=== PATIENT | male | born 1955 | race Caucasian/White ===

== ENCOUNTER → 2018-06-22 | Outpatient (REF) | payer BC ==
[2018-06-22 13:30] LABS: HEMATOCRIT 47.5 % (42.0-52.0); HEMOGLOBIN 15.5 g/dl (13.5-17.5); MEAN CORPUSCULAR HEMOGLOBIN 29.6 pg (27.0-33.0); MEAN CORPUSCULAR HGB CONC 32.6 g/dl (32.0-36.5); MEAN CORPUSCULAR VOLUME 90.8 fl (80.0-96.0); PLATELET COUNT, AUTOMATED 266 10^3/uL (150-450); RED BLOOD COUNT 5.23 10^6/uL (4.30-6.10); WHITE BLOOD COUNT 5.7 10^3/uL (4.0-10.0)
[2018-06-22 13:53] LABS: ALT/SGPT 40 U/L (12-78); BILIRUBIN,TOTAL 0.7 MG/DL (0.2-1.0); BLOOD UREA NITROGEN 17 MG/DL (7-18); CALCIUM LEVEL 8.8 MG/DL (8.8-10.2); CARBON DIOXIDE LEVEL 29 MEQ/L (21-32); CHLORIDE LEVEL 104 MEQ/L (98-107); CREATININE FOR GFR 1.14 MG/DL (0.70-1.30); GLOMERULAR FILTRATION RATE > 60.0 (>49); GLUCOSE, FASTING 112 MG/DL (70-100); POTASSIUM SERUM 4.8 MEQ/L (3.5-5.1); SODIUM LEVEL 140 MEQ/L (136-145); TRIGLYCERIDES LEVEL 125 MG/DL (<150)
[2018-06-22 13:54] LABS: ALBUMIN 4.1 GM/DL (3.2-5.2); CHOLESTEROL LEVEL 195 MG/DL (<200); CHOLESTEROL RISK RATIO 4.333 (<5); FOLATE 14.7 NG/ML; FREE T4 1.16 NG/DL (0.76-1.46); HDL CHOLESTEROL 45 MG/DL (>40); LDL CHOLESTEROL 125 MG/DL (<100); NON-HDL-C 150 MG/DL; RHEUMATOID FACTOR QUANT < 10.0 IU/ML (<15.0); TOTAL 25(OH) VITAMIN D 14.6 NG/ML (30.0-100.0); TOTAL PROTEIN 7.1 GM/DL (6.4-8.2); VITAMIN B12 LEVEL 458 PG/ML
[2018-06-22 14:07] LABS: MALB URINE SIEMENS 11.6 MG/L; MAU/CREAT RATIO 4.3 MCG/MG (0.0-30.0)
[2018-06-24 00:07] LABS: ANA (HEP2) Negative (.)
== END ==
LOC: M SFHCADAM 09:17
PROVIDERS: ATTEND Family Medicine
DX: I11.9 Hypertensive heart disease without heart failure (principal); E78.5 Hyperlipidemia, unspecified; I73.00 Raynaud's syndrome without gangrene

== ENCOUNTER 2018-09-26 08:29 | Day surgery (SDC) | payer BC ==
[~2018-09-26] VITALS: Ht 172.7 cm; Wt 91.4 kg
[~2018-09-26 08:29] MED LIST: AZEL0.055; LANS30CA93; LIDOCAINE 2% INJ 100 MG/5 ML SDV (FOR ANES.) As Ordered ONE; LISI10TA4; PROPOFOL 200 MG/20 ML VIAL As Ordered ONE; [UNRECOGNIZED DRUG - CODE]
[2018-09-26] MEDS ORDERED: NS 1,000 ML IV ONE (09:15)
[2018-09-26] MEDS ORDERED: PROPOFOL 200 MG/20 ML VIAL As Ordered ONE (10:33)
--- NOTE | 2018-09-26 10:50 | ROOR ---
Patient Name: Narciso Abbott Procedure Date: 09/26/2018 10:10 AM Date of : 1955 Age: 63 Room: [facility] Gender: Male Note Status: Finalized Procedure: Colonoscopy Indications: Screening for colorectal malignant neoplasm Providers: Rodrigo Galvez MD Referring MD: Prabhu Gtz MD Requesting Provider: Medicines: Monitored Anesthesia Care Complications: No immediate complications. Procedure: Pre-Anesthesia Assessment: - Prior to the procedure, a History and Physical was performed, and patient medications and allergies were reviewed. The patient is competent. The risks and benefits of the procedure and the sedation options and risks were discussed with the patient. All questions were answered and informed consent was obtained. Patient identification and proposed procedure were verified by the physician, the nurse and the anesthesiologist in the procedure room. Mental Status Examination: alert and oriented. Airway Examination: normal oropharyngeal airway and neck mobility. Respiratory Examination: clear to auscultation. CV Examination: normal. Prophylactic Antibiotics: The patient does not require prophylactic antibiotics. Prior Anticoagulants: The patient has taken no previous anticoagulant or antiplatelet agents. ASA Grade Assessment: II - A patient with mild systemic disease. After reviewing the risks and benefits, the patient was deemed in satisfactory condition to undergo the procedure. The anesthesia plan was to use monitored anesthesia care (MAC). Immediately prior to administration of medications, the patient was re-assessed for adequacy to receive sedatives. The heart rate, respiratory rate, oxygen saturations, blood pressure, adequacy of pulmonary ventilation, and response to care were monitored throughout the procedure. The physical status of the patient was re-assessed after the procedure. The Colonoscope was introduced through the anus and advanced to the cecum, identified by appendiceal orifice and ileocecal valve. The colonoscopy was performed without difficulty. The patient tolerated the procedure well. The quality of the bowel preparation was good. The ileocecal valve, appendiceal orifice, and rectum were photographed. Scope insertion time was 2 minutes. Scope withdrawal time was 10 minutes. The total duration of the procedure was 12 minutes. Findings: The perianal and digital rectal examinations were normal. Two sessile polyps were found in the cecum. The polyps were 4 to 8 mm in size. These polyps were removed with a cold snare. Resection and retrieval were complete. Verification of patient identification for the specimen was done by the physician and nurse using the patient's name, date and medical record number. Estimated blood loss was minimal. A 3 mm polyp was found in the ascending colon. The polyp was sessile. The polyp was removed with a cold snare. Resection and retrieval were complete. A 12 mm polyp was found in the descending colon. The polyp was sessile. The polyp was removed with a cold snare. Resection and retrieval were complete. For hemostasis, one hemostatic clip was successfully placed. There was no bleeding at the end of the procedure. Multiple small and large-mouthed diverticula were found from sigmoid to descending colon. There was no evidence of diverticular bleeding. Non-bleeding external and internal hemorrhoids were found during retroflexion. The hemorrhoids were medium-sized. Impression: - Two 4 to 8 mm polyps in the cecum, removed with a cold snare. Resected and retrieved. - One 3 mm polyp in the ascending colon, removed with a cold snare. Resected and retrieved. - One 12 mm polyp in the descending colon, removed with a cold snare. Resected and retrieved. Clip was placed. - Moderate diverticulosis from sigmoid to descending colon. There was no evidence of diverticular bleeding. - Non-bleeding external and internal hemorrhoids. Recommendation: - Patient has a contact number available for emergencies. The signs and symptoms of potential delayed complications were discussed with the patient. Return to normal activities tomorrow. Written discharge instructions were provided to the patient. - High fiber diet. - Continue present medications. - Await pathology results. - Repeat colonoscopy in 3 - 5 years for surveillance based on pathology results. - Based on the biopsy results you will receive a phone call from GI clinic in 2-3 weeks to review the pathology results AND/OR your results will be faxed to your Primary care physician. - Return to primary care physician. Rodrigo Galvez MD Rodrigo Galvez MD 09/26/2018 10:49:31 AM Electronically signed by Rodrigo Galvez MD Number of Addenda: 0 Note Initiated On: 09/26/2018 10:10 AM Estimated Blood Loss: Estimated blood loss was minimal.
[2018-09-26 10:55] VITALS: BP 117/72
== END 2018-09-26 11:07 | disposition home or self-care (01) ==
LOC: M OPP 08:29
PROVIDERS: ATTEND Internal Medicine Gastroenterology
DX: Z12.11 Encounter for screening for malignant neoplasm of colon (principal); D12.0 Benign neoplasm of cecum; D12.2 Benign neoplasm of ascending colon; D12.4 Benign neoplasm of descending colon; K64.8 Other hemorrhoids; K57.30 Diverticulosis of large intestine without perforation or abscess without bleeding; Z79.899 Other long term (current) drug therapy; Z87.891 Personal history of nicotine dependence

== ENCOUNTER → 2019-02-15 | Outpatient (REF) | payer BC ==
[~2019-02-15] MED LIST changes: -LIDOCAINE 2% INJ 100 MG/5 ML SDV (FOR ANES.) As Ordered ONE; -PROPOFOL 200 MG/20 ML VIAL As Ordered ONE
[2019-02-15 12:42] LABS: HEMATOCRIT 45.9 % (42.0-52.0); HEMOGLOBIN 14.7 g/dl (13.5-17.5); MEAN CORPUSCULAR HEMOGLOBIN 30.1 pg (27.0-33.0); MEAN CORPUSCULAR VOLUME 94.1 fl (80.0-96.0); PLATELET COUNT, AUTOMATED 234 10^3/uL (150-450); RED BLOOD COUNT 4.88 10^6/uL (4.30-6.10); WHITE BLOOD COUNT 5.2 10^3/uL (4.0-10.0)
[2019-02-15 12:55] LABS: ALBUMIN 3.8 GM/DL (3.2-5.2); ALT/SGPT 43 U/L (12-78); BILIRUBIN,TOTAL 0.6 MG/DL (0.2-1.0); BLOOD UREA NITROGEN 15 MG/DL (7-18); CARBON DIOXIDE LEVEL 31 MEQ/L (21-32); CHLORIDE LEVEL 104 MEQ/L (98-107); CREATININE FOR GFR 1.06 MG/DL (0.70-1.30); GLOMERULAR FILTRATION RATE > 60.0 (>49); GLUCOSE, FASTING 105 MG/DL (70-100); POTASSIUM SERUM 4.6 MEQ/L (3.5-5.1); SODIUM LEVEL 140 MEQ/L (136-145); TOTAL PROTEIN 6.7 GM/DL (6.4-8.2)
== END ==
LOC: M SFHCADAM 08:56
PROVIDERS: ATTEND Physician Assistant
DX: I11.9 Hypertensive heart disease without heart failure (principal)

== ENCOUNTER → 2019-06-27 | Outpatient (REF) | payer BC | LOC: M SFHCADAM 08:28 | PROVIDERS: ATTEND Family Medicine | DX: I11.9 Hypertensive heart disease without heart failure (principal); E78.5 Hyperlipidemia, unspecified; Z12.5 Encounter for screening for malignant neoplasm of prostate; E55.9 Vitamin D deficiency, unspecified ==

== ENCOUNTER → 2019-12-28 | Outpatient (REF) | payer BC, OTHER, SELFPAY ==
[2019-12-28 15:47] LABS: ALBUMIN 3.6 GM/DL (3.2-5.2); ALT/SGPT 31 U/L (12-78); BILIRUBIN,TOTAL 0.5 MG/DL (0.2-1.0); BLOOD UREA NITROGEN 15 MG/DL (7-18); CALCIUM LEVEL 9.3 MG/DL (8.8-10.2); CARBON DIOXIDE LEVEL 32 MEQ/L (21-32); CHLORIDE LEVEL 106 MEQ/L (98-107); CHOLESTEROL LEVEL 203 MG/DL (<200); CHOLESTEROL RISK RATIO 3.903 (<5); CREATININE FOR GFR 1.04 MG/DL (0.70-1.30); GLOMERULAR FILTRATION RATE > 60.0 (>49); GLUCOSE, FASTING 96 MG/DL (70-100); HDL CHOLESTEROL 52 MG/DL (>40); LDL CHOLESTEROL 131 MG/DL (<100); NON-HDL-C 151 MG/DL; POTASSIUM SERUM 5.1 MEQ/L (3.5-5.1); PROSTATIC SPECIFIC AG MONITOR 0.95 NG/ML (< 4.00); SODIUM LEVEL 140 MEQ/L (136-145); TOTAL PROTEIN 6.7 GM/DL (6.4-8.2); TRIGLYCERIDES LEVEL 99 MG/DL (<150)
[2019-12-28 15:52] LABS: TOTAL 25(OH) VITAMIN D 31.4 NG/ML (30.0-100.0)
== END ==
LOC: M LABDRWAD 10:15
PROVIDERS: ATTEND Family Medicine
DX: E55.9 Vitamin D deficiency, unspecified (principal); E78.1 Pure hyperglyceridemia; I11.9 Hypertensive heart disease without heart failure; Z12.5 Encounter for screening for malignant neoplasm of prostate

== ENCOUNTER → 2020-03-26 | Outpatient (CLI) | payer SELFPAY | LOC: M LABSMTC 11:00 | PROVIDERS: ATTEND Pediatrics | DX: Z11.59 Encounter for screening for other viral diseases (principal) ==

== ENCOUNTER → 2020-09-28 | Outpatient (REF) | payer OTHER ==
[~2020-09-28] MED LIST changes: +LISI10TA22; -LISI10TA4
[2020-09-28 18:53] LABS: APPEARANCE, URINE CLEAR (CLEAR); BACTERIA, URINE AUTO NEGATIVE (NEGATIVE); BILIRUBIN, URINE AUTO NEGATIVE (NEGATIVE); BLOOD, URINE BLOOD NEGATIVE (NEGATIVE); COLOR, URINE YELLOW (YELLOW); GLUCOSE, URINE (UA) AUTO NEGATIVE (NEGATIVE); KETONE, URINE AUTO NEGATIVE (NEGATIVE); LEUKOCYTE ESTERASE, URINE AUTO NEGATIVE (NEGATIVE); NITRITE, URINE AUTO NEGATIVE (NEGATIVE); PROTEIN, URINE AUTO NEGATIVE (NEGATIVE); RBC, URINE AUTO 0 /HPF (0-3); SPECIFIC GRAVITY URINE AUTO 1.006 (1.002-1.035); SQUAMOUS EPITHELIAL CELL UR AU 0 /HPF (0-6); UROBILINOGEN, URINE AUTO 0.2 mg/dL (0.0-2.0); WBC, URINE AUTO 0 /HPF (0-3)
== END ==
LOC: M LAB REF 18:36
PROVIDERS: ATTEND Physician Assistant
DX: N39.0 Urinary tract infection, site not specified (principal)

== ENCOUNTER → 2021-04-22 | Outpatient (CLI) | payer OTHER ==
--- NOTE | 2021-04-22 09:25 | REP ---
INDICATION: PUNCTURE WOUND OF RIGHT THUMB COMPARISON: None. TECHNIQUE: AP, lateral, bilateral oblique views right 1st digit. FINDINGS: The subcutaneous tissues are normal and without emphysema or foreign body. There is a subtle linear lucency noted within the distal phalanx/terminal tuft which is nonspecific. This should be correlated with mechanism of injury. No further acute osseous abnormality identified. IMPRESSION: No obvious soft tissue injury.. As above. <Electronically signed by Ronald Duran > 04/22/21 0910
== END ==
LOC: M ADAMS 09:01
PROVIDERS: ATTEND Family Medicine
DX: S61.031A Puncture wound without foreign body of right thumb without damage to nail, initial encounter (principal); W18.30XA Fall on same level, unspecified, initial encounter; Y92.009 Unspecified place in unspecified non-institutional (private) residence as the place of occurrence of the external cause

== ENCOUNTER → 2021-10-03 | Outpatient (REF) | payer OTHER | LOC: M SFHCADAM 14:55 | PROVIDERS: ATTEND Family Medicine | DX: K42.9 Umbilical hernia without obstruction or gangrene (principal); I11.9 Hypertensive heart disease without heart failure; E78.5 Hyperlipidemia, unspecified; Z12.5 Encounter for screening for malignant neoplasm of prostate ==

== ENCOUNTER → 2021-11-14 | Outpatient (CLI) | payer OTHER ==
[2021-11-14 10:53] LABS: HEMATOCRIT 55.3 % (42.0-52.0); HEMOGLOBIN 17.4 g/dl (13.5-17.5); MEAN CORPUSCULAR HEMOGLOBIN 28.6 pg (27.0-33.0); MEAN CORPUSCULAR HGB CONC 31.5 g/dl (32.0-36.5); PLATELET COUNT, AUTOMATED 230 10^3/uL (150-450); RED BLOOD COUNT 6.08 10^6/uL (4.30-6.10); WHITE BLOOD COUNT 7.2 10^3/uL (4.0-10.0)
[2021-11-14 11:16] LABS: ALBUMIN 3.9 GM/DL (3.2-5.2); ALT/SGPT 32 U/L (12-78); BILIRUBIN,TOTAL 0.6 MG/DL (0.2-1.0); BLOOD UREA NITROGEN 17 MG/DL (7-18); CALCIUM LEVEL 9.7 MG/DL (8.8-10.2); CARBON DIOXIDE LEVEL 27 MEQ/L (21-32); CHLORIDE LEVEL 107 MEQ/L (98-107); CHOLESTEROL LEVEL 211 MG/DL (<200); CHOLESTEROL RISK RATIO 4.306 (<5); CREATININE FOR GFR 1.13 MG/DL (0.70-1.30); GLOMERULAR FILTRATION RATE > 60.0 (>49); GLUCOSE, FASTING 103 MG/DL (70-100); HDL CHOLESTEROL 49 MG/DL (>40); LDL CHOLESTEROL 128 MG/DL (<100); NON-HDL-C 162 MG/DL; POTASSIUM SERUM 4.7 MEQ/L (3.5-5.1); SODIUM LEVEL 141 MEQ/L (136-145); TOTAL PROTEIN 7.2 GM/DL (6.4-8.2); TRIGLYCERIDES LEVEL 172 MG/DL (<150)
== END ==
LOC: M ADAMS 08:07
PROVIDERS: ATTEND Family Medicine
DX: Z12.5 Encounter for screening for malignant neoplasm of prostate (principal); I11.9 Hypertensive heart disease without heart failure; K42.9 Umbilical hernia without obstruction or gangrene; E78.5 Hyperlipidemia, unspecified
CPT/HCPCS: 36415; 80053; 80061; 85027; G0103

== ENCOUNTER → 2022-05-06 | Outpatient (CLI) | payer OTHER | LOC: M EKG 14:36 | PROVIDERS: ATTEND Anesthesiology | DX: I10 Essential (primary) hypertension (principal) ==

== ENCOUNTER → 2022-05-07 | Outpatient (CLI) | payer OTHER | LOC: M LABSMTC 09:45 | PROVIDERS: ATTEND Anesthesiology | DX: Z01.812 Encounter for preprocedural laboratory examination (principal); Z11.52 Encounter for screening for COVID-19 ==

== ENCOUNTER → 2022-07-30 | Outpatient (CLI) | payer OTHER | LOC: M ADAMS 10:12 | PROVIDERS: ATTEND Physician Assistant | DX: R05.3 Chronic cough (principal) ==

== ENCOUNTER → 2022-08-03 | Outpatient (REF) | payer OTHER ==
[2022-08-03 12:57] LABS: BASO # 0.1 10^3/uL (0.0-0.2); BASO % 1.1 % (0.0-1.0); EOS # 0.2 10^3/uL (0.0-0.5); EOS % 2.7 % (0.0-3.0); HEMATOCRIT 47.5 % (42.0-52.0); HEMOGLOBIN 14.9 g/dl (13.5-17.5); LYMPH # 2.2 10^3/uL (1.5-5.0); LYMPH % 31.1 % (24.0-44.0); MEAN CORPUSCULAR HEMOGLOBIN 29.9 pg (27.0-33.0); MEAN CORPUSCULAR HGB CONC 31.4 g/dl (32.0-36.5); MEAN CORPUSCULAR VOLUME 95.4 fl (80.0-96.0); MONO # 0.7 10^3/uL (0.0-0.8); MONO % 9.3 % (2.0-8.0); NEUTROPHILS # 3.9 10^3/uL (1.5-8.5); NEUTROPHILS % 55.4 % (36.0-66.0); PLATELET COUNT, AUTOMATED 272 10^3/uL (150-450); RED BLOOD COUNT 4.98 10^6/uL (4.30-6.10)
== END ==
LOC: M SFHCADAM 08:54
PROVIDERS: ATTEND Physician Assistant
DX: J32.9 Chronic sinusitis, unspecified (principal); R05.3 Chronic cough

== ENCOUNTER 2022-09-08 08:24 | Day surgery (SDC) | payer OTHER ==
[~2022-09-08] VITALS: Ht 172.7 cm; Wt 88.5 kg
[~2022-09-08 08:24] MED LIST changes: +AMLO1TAB24 PO; +ceFAZolin SOD 2 GM in IV 1 EA IV ONE
[2022-09-08] MEDS ORDERED: fentaNYL 250 MCG/5 ML INJECTION As Ordered ONE (08:53)
[2022-09-08] MEDS ORDERED: MIDAZOLAM INJ 2MG/2ML VIAL As Ordered ONE (08:53)
[2022-09-08] MEDS ORDERED: KETOROLAC 60MG 2ML VIAL As Ordered ONE (08:55)
[2022-09-08] MEDS ORDERED: ACETAMINOPHEN 1000MG 100ML IV BAG As Ordered ONE (08:56)
[2022-09-08] MEDS ORDERED: propofoL 200 MG/20 ML VIAL As Ordered ONE (08:56)
[2022-09-08] MEDS ORDERED: LIDOCAINE 2% 100MG/5ML SDV (FOR ANES.) As Ordered ONE (08:56)
[2022-09-08] MEDS ORDERED: ROCURONIUM BROMIDE 50MG/5ML VIAL As Ordered ONE ×2 (08:56→10:30)
[2022-09-08] MEDS ORDERED: ONDANSETRON 4MG 2ML VIAL As Ordered ONE (08:56)
[2022-09-08] MEDS ORDERED: LIDOCAINE 1% SDV 5ML VIAL SC PRN (09:10)
[2022-09-08] MEDS ORDERED: LR 1,000 ML IV SCH ×2 (09:10→11:30)
[2022-09-08] MEDS ORDERED: MIDAZOLAM 5MG/ML 1ML VIAL As Ordered ONE (09:43)
[2022-09-08] MEDS ORDERED: BUPIVACAINE/EPIN 0.25% 30ML VIAL As Ordered ONE (10:05)
[2022-09-08] MEDS ORDERED: ePHEDrine SULFATE 25 MG/5 ML(5MG/ML) SYRINGE As Ordered ONE (10:29)
[2022-09-08] MEDS ORDERED: PHENYLephrine 500MCG 5ML (100MCG/ML) SYRINGE As Ordered ONE (10:29)
[2022-09-08] MEDS ORDERED: SUGAMMADEX SODIUM 500 MG/5 ML VIAL (BRIDION) As Ordered ONE (10:31)
[2022-09-08] MEDS ORDERED: BUPIVACAINE HCL 0.25% 30ML VIAL As Ordered ONE (10:36)
[2022-09-08] MEDS ORDERED: BUPIVACAINE LIPOSOME/PF 1.3% 20ML VIAL (13.3MG/ML)(EXPAREL) As Ordered ONE (10:36)
[2022-09-08] MEDS ORDERED: ESMOLOL INJ 100MG/10ML VIAL As Ordered ONE (10:37)
[2022-09-08] MEDS ORDERED: fentaNYL 100 MCG/2 ML INJECTION IV PRN (11:30)
[2022-09-08] MEDS ORDERED: oxyCODONE 5MG TAB PO PRN (11:30)
[2022-09-08] MEDS ORDERED: ONDANSETRON 4MG 2ML VIAL IV PRN (11:30)
[2022-09-08] MEDS ORDERED: HYDROMORPHONE HCL 0.5 MG/ 0.5 ML SYRINGE IV PRN (11:30)
[2022-09-08 13:15] VITALS: BP 141/80
== END 2022-09-08 13:25 | disposition home or self-care (01) ==
LOC: M SDC 08:24
PROVIDERS: ATTEND Surgery
DX: K43.2 Incisional hernia without obstruction or gangrene (principal); I11.9 Hypertensive heart disease without heart failure; M10.00 Idiopathic gout, unspecified site; K21.9 Gastro-esophageal reflux disease without esophagitis; M25.461 Effusion, right knee; E78.5 Hyperlipidemia, unspecified; Z87.891 Personal history of nicotine dependence; Z79.899 Other long term (current) drug therapy; Z79.891 Long term (current) use of opiate analgesic; Z79.2 Long term (current) use of antibiotics; Z79.52 Long term (current) use of systemic steroids; Z88.8 Allergy status to other drugs, medicaments and biological substances
CPT/HCPCS: 49615; C1765; C1781; C9290; J0131; J0690; J1100; J1885; J2250; J2370; J2405; J3010; S0020; S2900

== ENCOUNTER → 2022-11-03 | Outpatient (CLI) | payer OTHER ==
[~2022-11-03] MED LIST changes: +E-Z-PAQUE 96% w/w SUSP 176GM BTL As Ordered ONE; -ceFAZolin SOD 2 GM in IV 1 EA IV ONE
== END ==
LOC: M RAD 09:42
PROVIDERS: ATTEND Family Medicine
DX: K44.9 Diaphragmatic hernia without obstruction or gangrene (principal)

== ENCOUNTER → 2023-03-03 | Outpatient (REF) | payer OTHER ==
[~2023-03-03] MED LIST changes: -E-Z-PAQUE 96% w/w SUSP 176GM BTL As Ordered ONE
[2023-03-03 15:05] LABS: HEMATOCRIT 46.2 % (42.0-52.0); HEMOGLOBIN 14.8 g/dl (13.5-17.5); MEAN CORPUSCULAR HEMOGLOBIN 30.2 pg (27.0-33.0); MEAN CORPUSCULAR VOLUME 94.3 fl (80.0-96.0); PLATELET COUNT, AUTOMATED 263 10^3/uL (150-450); WHITE BLOOD COUNT 5.9 10^3/uL (4.0-10.0)
[2023-03-03 15:14] LABS: ALBUMIN 3.7 G/DL (3.2-5.2); ALKALINE PHOSPHATASE 67 U/L (46-116); ALT/SGPT 34 U/L (7.0-40); AST/SGOT 19 U/L (<34); BILIRUBIN,TOTAL 0.5 MG/DL (0.3-1.2); BLOOD UREA NITROGEN 17 MG/DL (9-23); CALCIUM LEVEL 9.1 MG/DL (8.3-10.6); CARBON DIOXIDE LEVEL 28 MMOL/L (20-31); CHLORIDE LEVEL 105 MMOL/L (98-107); CHOLESTEROL LEVEL 180 MG/DL (<200); CHOLESTEROL RISK RATIO 3.33 (<5); CREATININE FOR GFR 0.94 MG/DL (0.70-1.30); GLOMERULAR FILTRATION RATE > 60.0 (>49); GLUCOSE, FASTING 115 MG/DL (74-106); HDL CHOLESTEROL 53.9 MG/DL (>40); LDL CHOLESTEROL 112.1 MG/DL (<100); NON-HDL-C 126.1 MG/DL; POTASSIUM SERUM 4.2 MMOL/L (3.5-5.1); SODIUM LEVEL 141 MMOL/L (136-145); TOTAL PROTEIN 6.6 G/DL (5.7-8.2); TRIGLYCERIDES LEVEL 70 MG/DL (<150)
== END ==
LOC: M SFHCADAM 09:09
PROVIDERS: ATTEND Family Medicine
DX: I11.9 Hypertensive heart disease without heart failure (principal); I73.00 Raynaud's syndrome without gangrene; E78.5 Hyperlipidemia, unspecified; Z12.5 Encounter for screening for malignant neoplasm of prostate

== ENCOUNTER → 2023-08-26 | Outpatient (CLI) | payer MEDICARE, OTHER ==
[~2023-08-26] MED LIST changes: +AMLO2.5T3 PO
== END ==
LOC: M RAD 12:07
PROVIDERS: ATTEND Physician Assistant
DX: R10.30 Lower abdominal pain, unspecified (principal)

== ENCOUNTER → 2024-03-07 | Outpatient (REF) | payer OTHER ==
[~2024-03-07] MED LIST changes: -AZEL0.055; +AZEL1SPR4
[2024-03-07 13:48] LABS: HEMATOCRIT 46.3 % (42.0-52.0); MEAN CORPUSCULAR HEMOGLOBIN 30.3 pg (27.0-33.0); MEAN CORPUSCULAR HGB CONC 32.4 g/dl (32.0-36.5); MEAN CORPUSCULAR VOLUME 93.5 fl (80.0-96.0); PLATELET COUNT, AUTOMATED 263 10^3/uL (150-450); RED BLOOD COUNT 4.95 10^6/uL (4.30-6.10); WHITE BLOOD COUNT 8.7 10^3/uL (4.0-10.0)
[2024-03-07 13:50] LABS: URIC ACID 4.6 MG/DL (3.7-9.2)
[2024-03-07 13:53] LABS: ALBUMIN 3.7 G/DL (3.2-5.2); ALKALINE PHOSPHATASE 69 U/L (40-129); ALT/SGPT 25 U/L (7.0-40); AST/SGOT 8 U/L (<34); BILIRUBIN,TOTAL 0.7 MG/DL (0.3-1.2); BLOOD UREA NITROGEN 18 MG/DL (9-23); CALCIUM LEVEL 9.6 MG/DL (8.3-10.6); CARBON DIOXIDE LEVEL 31 MMOL/L (20-31); CHLORIDE LEVEL 104 MMOL/L (98-107); CHOLESTEROL LEVEL 177 MG/DL (<200); CHOLESTEROL RISK RATIO 3.29 (<5); CREATININE FOR GFR 0.93 MG/DL (0.70-1.30); GLOMERULAR FILTRATION RATE > 60.0 (>49); GLUCOSE, FASTING 111 MG/DL (74-106); HDL CHOLESTEROL 53.7 MG/DL (>40); LDL CHOLESTEROL 105.5 MG/DL (<100); NON-HDL-C 123.3 MG/DL; POTASSIUM SERUM 4.8 MMOL/L (3.5-5.1); SODIUM LEVEL 140 MMOL/L (136-145); TOTAL PROTEIN 6.9 G/DL (5.7-8.2); TRIGLYCERIDES LEVEL 89 MG/DL (<150)
[2024-03-07 14:04] LABS: HEMOGLOBIN A1c 6.1 % (4.0-6.0)
== END ==
LOC: M SFHCADAM 08:40
PROVIDERS: ATTEND Family Medicine
DX: R10.30 Lower abdominal pain, unspecified (principal); I11.9 Hypertensive heart disease without heart failure; E78.5 Hyperlipidemia, unspecified; M10.00 Idiopathic gout, unspecified site; Z12.5 Encounter for screening for malignant neoplasm of prostate; Z13.1 Encounter for screening for diabetes mellitus

== ENCOUNTER → 2024-12-04 | Outpatient (CLI) | payer OTHER | LOC: M ADAMS 10:29 | PROVIDERS: ATTEND Physician Assistant | DX: M79.671 Pain in right foot (principal); M79.672 Pain in left foot ==

== ENCOUNTER → 2025-03-08 | Outpatient (REF) | payer OTHER ==
[2025-03-08 13:45] LABS: PSA SCREENING 1.27 NG/ML (< 4.00)
[2025-03-08 13:47] LABS: ALT/SGPT 36 U/L (7.0-40); AST/SGOT 24 U/L (<34); C REACTIVE PROTEIN QUANTITATIV < 0.50 MG/DL (<1.0); CALCIUM LEVEL 9.1 MG/DL (8.3-10.6); CARBON DIOXIDE LEVEL 26 MMOL/L (20-31); CHLORIDE LEVEL 106 MMOL/L (98-107); CHOLESTEROL LEVEL 184 MG/DL (<200); CHOLESTEROL RISK RATIO 3.62 (<5); CREATININE FOR GFR 0.91 MG/DL (0.70-1.30); GLOMERULAR FILTRATION RATE > 90.0 (>49); LDL CHOLESTEROL 112.4 MG/DL (<100); NON-HDL-C 133.2 MG/DL; PLATELET COUNT, AUTOMATED 263 10^3/uL (150-450); POTASSIUM SERUM 4.1 MMOL/L (3.5-5.1); SODIUM LEVEL 143 MMOL/L (136-145); TRIGLYCERIDES LEVEL 104 MG/DL (<150)
[2025-03-08 14:07] LABS: ESTIMATED AVERAGE GLUCOSE 131.0 MG/DL (60-110)
== END ==
LOC: M SFHCADAM 08:55
PROVIDERS: ATTEND Family Medicine
DX: M10.00 Idiopathic gout, unspecified site (principal); I73.00 Raynaud's syndrome without gangrene; E78.5 Hyperlipidemia, unspecified; Z13.1 Encounter for screening for diabetes mellitus; Z12.5 Encounter for screening for malignant neoplasm of prostate
CPT/HCPCS: 80053; 80061; 83036; 84550; 85027; 86140; G0103